=== PATIENT | male | born 1990 | race American Indian/Alaskan Native ===

== ENCOUNTER 2019-04-30 17:33 | Emergency (ER) | payer OTHER ==
[2019-04-30] MEDS ORDERED: PEPCID IV ONE (17:36)
[2019-04-30] MEDS ORDERED: BENADRYL IV ONE (17:36)
[2019-04-30] MEDS ORDERED: SOLU-Medrol IV ONE (17:36)
[2019-04-30] MEDS ORDERED: NACL 0.9% 1000 ML 1,000 ML IV ONE (17:36)
--- NOTE | 2019-04-30 17:38 | Event Note ---
ED Screening Note ED Screening Note: ALLERGIC REACTION TO STING TO MAIN ER This initial assessment/diagnostic orders/clinical plan/treatment(s) is/are subject to change based on patients health status, clinical progression and re- assessment by fellow clinical providers in the ED. Further treatment and workup at subsequent clinical providers discretion. Patient/guardian urged not to elope from the ED as their condition may be serious if not clinically assessed and managed. Initial orders include:
[2019-04-30] MEDS ORDERED: ZOFRAN IV ONE (17:51)
--- NOTE | 2019-04-30 17:55 | Emergency Department Report ---
ED General Adult HPI - General Chief complaint: Allergic Reaction Stated complaint: ALLERGIC REACTION Time Seen by Provider: 04/30/19 17:36 Source: patient, RN notes reviewed Mode of arrival: Ambulatory Limitations: No Limitations - History of Present Illness Initial comments: This is a pleasant 28-year-old gentleman, not known to this provider previously. He denies chronic medical conditions. He does not have a local primary care doctor. He was stung in the scalp by a wasp approximately 30 minutes prior to arrival. Shortly thereafter, developed nausea, and cutaneous itching. Also has scalp pain near where he was stung. Does not think that the stinger is currently embedded. Denies fevers, chills, neck pain, neck swelling, makes no endorsement of shortness of breath. Has no abdominal pain. No other injuries, no other complaints. Took Benadryl prior to arrival, which moderately improved symptoms. In the emergency room, still nauseous, with diffuse urticaria. Treated empirically with Zofran, fluids, Pepcid and steroids, and now feels "100% better." Still endorses mild itching, but states that he feels much better. Requesting to go home. -: Sudden Location: head, back, abdomen, left, right, upper extremity, lower extremity Severity scale (0 -10): 0 Improves with: medication - Related Data Previous Rx's Medication Instructions Recorded Last Taken Type Ciprofloxacin 0.3% (Nf) 2.5 ml OP Q2HR #1 bottle 06/16/15 Unknown Rx [Ciprofloxacin OPTH] EPINEPHrine [Epipen 2-Petey] 0.3 mg IM DAILY PRN #2 ml 04/30/19 Unknown Rx Famotidine [Pepcid] 20 mg PO BID #10 tablet 04/30/19 Unknown Rx diphenhydrAMINE [Benadryl] 50 mg PO Q8HR PRN #20 capsule 04/30/19 Unknown Rx predniSONE [Deltasone] 40 mg PO QDAY #8 tab 04/30/19 Unknown Rx Allergies Allergy/AdvReac Type Severity Reaction Status Date / Time No Known Allergies Allergy Unverified 06/16/15 11:23 ED Review of Systems ROS: Stated complaint: ALLERGIC REACTION Other details as noted in HPI Constitutional: denies: fever Eyes: denies: eye discharge ENT: denies: epistaxis, congestion Respiratory: denies: cough Cardiovascular: denies: chest pain Gastrointestinal: nausea, vomiting. denies: abdominal pain Genitourinary: denies: dysuria Musculoskeletal: other (diffuse itching) Skin: lesions, pruritus Neurological: denies: weakness ED Past Medical Hx - Past Medical History Previous Medical History?: No - Surgical History Past Surgical History?: No - Medications Home Medications: Home Medications Medication Instructions Recorded Confirmed Last Taken Type Ciprofloxacin 0.3% (Nf) 2.5 ml OP Q2HR #1 bottle 06/16/15 Unknown Rx [Ciprofloxacin OPTH] EPINEPHrine [Epipen 2-Petey] 0.3 mg IM DAILY PRN #2 ml 04/30/19 Unknown Rx Famotidine [Pepcid] 20 mg PO BID #10 tablet 04/30/19 Unknown Rx diphenhydrAMINE [Benadryl] 50 mg PO Q8HR PRN #20 capsule 04/30/19 Unknown Rx predniSONE [Deltasone] 40 mg PO QDAY #8 tab 04/30/19 Unknown Rx ED Physical Exam - General Limitations: No Limitations General appearance: alert, obese - Head Head exam: Present: atraumatic, normocephalic, other (no stinger is noted on the occipital scalp.) - Eye Eye exam: Present: normal appearance, EOMI - ENT ENT exam: Present: normal exam, normal orophraynx, mucous membranes moist, normal external ear exam, other (there is no stridor. There is no swelling of the base of the tongue. Patient speaking in full sentences.) - Neck Neck exam: Present: normal inspection, full ROM. Absent: tenderness, meningismus - Respiratory Respiratory exam: Present: normal lung sounds bilaterally. Absent: respiratory distress - Cardiovascular Cardiovascular Exam: Present: normal rhythm, tachycardia, normal heart sounds. Absent: systolic murmur, diastolic murmur, rubs, gallop - GI/Abdominal GI/Abdominal exam: Present: soft. Absent: distended, tenderness, guarding, rebound, rigid, pulsatile mass - Rectal Rectal exam: Present: deferred - Extremities Exam Extremities exam: Present: full ROM, other (2+ pulses noted in the bilateral upper, lower extremities. Compartments soft. No long bony tenderness. The pelvis is stable.). Absent: joint swelling, calf tenderness - Back Exam Back exam: Present: normal inspection, full ROM. Absent: tenderness, CVA tenderness (R), CVA tenderness (L), paraspinal tenderness, vertebral tenderness - Neurological Exam Neurological exam: Present: alert, oriented X3, normal gait, other (Extraocular movements intact. Tongue midline. No facial droop. Facial sensation intact to light touch in the V1, V2, V3 distribution bilaterally. 5 and 5 strength in 4 extremities.. Sensation is intact to light touch in 4 extremities.). Absent: motor sensory deficit - Psychiatric Psychiatric exam: Present: anxious - Skin Skin exam: Present: warm, erythema, urticaria ED Course Vital Signs 04/30/19 04/30/19 17:38 18:09 Temperature 98.7 F Pulse Rate 118 H Respiratory 16 16 Rate Blood Pressure 117/66 [Left] O2 Sat by Pulse 100 100 Oximetry ED Medical Decision Making - Lab Data Vital Signs 04/30/19 04/30/19 04/30/19 17:38 18:09 18:38 Temperature 98.7 F Pulse Rate 118 H 86 Respiratory 16 16 16 Rate Blood Pressure 117/66 106/52 [Left] O2 Sat by Pulse 100 100 100 Oximetry - Medical Decision Making Differential diagnosis, including not limited to: Allergic reaction after insect sting Assessment and plan: 28-year-old gentleman with presumed allergic reaction after insect sting. He is afebrile with reassuring vital signs and protecting his airway. He is treated appropriately, and his symptoms have resolved, with the exception of mild urticaria. He is protecting his airway, and his tachycardia has resolved. He is counseled that he may expect a rebound allergic reaction within the next 72 hours. He verbalizes understanding. Patient and friend/family instructed todownload good Rx application on smart phone device in order to find affordable prescriptions. Counseled to avoid exposure to insect stings. Critical care attestation.: If time is entered above; I have spent that time in minutes in the direct care of this critically ill patient, excluding procedure time. ED Disposition Clinical Impression: History of insect sting Disposition: [id number] TO HOME OR SELFCARE Is pt being admited?: No Does the pt Need Aspirin: No Condition: Good Instructions: Anaphylaxis (ED) Additional Instructions: Avoid exposure to insect stings in the future. Take the medications as needed/directed. Do not use the epinephrine pen unless patient develops inability to speak, and inability to breathe, sensation of throat closing, throat swelling, or tongue swelling. If any of these symptoms develop, use the epinephrine pen as directed, and contact 911 right away. The Pepcid and Benadryl medications may be purchased [id number] without prescription. Uses steroids as directed. Follow up with the primary care doctor within the next month. Return to the emergency room right away with new, worsening or different symptoms, or symptoms not present on the initial emergency room evaluation. Referrals: ALEC COKER MD [Primary Care Provider] - as needed Forms: Work/School Release Form(ED)
[2019-04-30] MEDS ORDERED: ATARAX PO ONE (18:28)
[2019-04-30 18:39] VITALS: BP 106/52
== END 2019-04-30 19:27 | disposition home or self-care (01) ==
LOC: ED 17:33
DX: T63.441A Toxic effect of venom of bees, accidental (unintentional), initial encounter (principal); Y92.89 Other specified places as the place of occurrence of the external cause
CPT/HCPCS: 96374; 96375; 99283; J2405; J2930; J7030